=== PATIENT | female | born 2000 | race Caucasian/White ===

== ENCOUNTER 2020-07-29 12:11 | Emergency (ER) | payer OTHER, SELFPAY ==
[~2020-07-29] VITALS: Ht 152.4 cm; Wt 104.5 kg
[2020-07-29] MEDS ORDERED: SERT-141 PO (12:25)
[2020-07-29] MEDS ORDERED: SPRI28TA PO (12:26)
[2020-07-29] MEDS ORDERED: HYDR-3363 PO (12:26)
[2020-07-29] MEDS ORDERED: METOCLOPRAMIDE INJ 10MG/2ML VIAL (J2765 PER 1) IV ONE (12:50)
[2020-07-29 13:23] LABS: BASO % 0.2 % (0.0-1.0); EOS # 0.1 10^3/uL (0.0-0.5); EOS % 0.7 % (0.0-3.0); HEMATOCRIT 44.3 % (36.0-47.0); HEMOGLOBIN 14.1 g/dl (12.0-15.5); LYMPH # 1.5 10^3/uL (1.5-5.0); LYMPH % 13.4 % (24.0-44.0); MEAN CORPUSCULAR HEMOGLOBIN 25.8 pg (27.0-33.0); MEAN CORPUSCULAR HGB CONC 31.8 g/dl (32.0-36.5); MONO # 0.6 10^3/uL (0.0-0.8); MONO % 4.9 % (2.0-8.0); NEUTROPHILS # 9.1 10^3/uL (1.5-8.5); NEUTROPHILS % 80.4 % (36.0-66.0); PLATELET COUNT, AUTOMATED 372 10^3/uL (150-450); RED BLOOD COUNT 5.47 10^6/uL (4.00-5.40); WHITE BLOOD COUNT 11.3 10^3/uL (4.0-10.0)
[2020-07-29 13:54] LABS: HCG, SERUM QUALITATIVE NEGATIVE (NEGATIVE)
[2020-07-29] MEDS ORDERED: ISOVUE-370 76% 100ML VIAL As Ordered ONE (13:57)
--- NOTE | 2020-07-29 14:25 | REP ---
INDICATION: CHEST PAIN. COMPARISON: No comparison study. TECHNIQUE: Portable upright AP chest radiograph. FINDINGS: The lungs are well inflated and free of infiltrate. Pleural angles are sharp. Heart size is normal. Pulmonary vasculature is not increased. Monitoring electrodes are present. IMPRESSION: No active disease. <Electronically signed by Loyd Gomez > 07/29/20 [id number]
[2020-07-29 14:47] LABS: ALBUMIN 3.4 GM/DL (3.2-5.2); ALT/SGPT 173 U/L (12-78); BILIRUBIN,DIRECT 0.6 MG/DL (0.0-0.2); BILIRUBIN,TOTAL 0.8 MG/DL (0.2-1.0); BLOOD UREA NITROGEN 15 MG/DL (7-18); CALCIUM LEVEL 9.3 MG/DL (8.5-10.1); CARBON DIOXIDE LEVEL 24 MEQ/L (21-32); CHLORIDE LEVEL 108 MEQ/L (98-107); CK-MB VALUE MASS < 1.0 NG/ML (<3.6); CPK CREATINE PHOSPHOKINASE 82 U/L (26-192); CREATININE FOR GFR 0.85 MG/DL (0.55-1.30); GLUCOSE, FASTING 112 MG/DL (70-100); LIPASE 40160 U/L (73-393); MB/CK RELATIVE INDEX 1.22 (< OR =4); SODIUM LEVEL 137 MEQ/L (136-145); TOTAL PROTEIN 8.1 GM/DL (6.4-8.2); TROPONIN I < 0.02 NG/ML (< 0.10)
[2020-07-29] MEDS ORDERED: PROMETHAZINE INJ 25 MG/ML VIAL (J2550) IV ONE (14:50)
[2020-07-29] MEDS ORDERED: MORPHINE 2 MG/ML 1ML VIAL (J2270) IV PRN (15:15)
--- NOTE | 2020-07-29 15:38 | REP ---
INDICATION: CP. COMPARISON: No comparison study.. TECHNIQUE: Contrast dose: 100 ML of Isovue [address] technique: Helical scanning is acquired and overlapping 1.5 mm and contiguous 3 mm axial images are reformatted. In addition, maximum intensity projection and multiplanar re-formation images are generated in sagittal and coronal imaging projections. FINDINGS: There is good opacification in the pulmonary arterial tree. There is no evidence of vessel cut off or filling defect to suggest pulmonary embolus. Homogeneous opacity is seen in the thoracic aorta. There is no evidence of aneurysm or dissection. Lung window settings demonstrate clear well inflated lungs. No pleural or pericardial effusion is seen. No infiltrate, mass, or significant pulmonary nodule is appreciated. There are a few granulomatous lymph node calcifications is visible in the left hilus and subcarinal region. In the upper abdomen, normal adrenal glands are seen. There is fatty infiltration of the liver and there is peripancreatic edema suggesting pancreatitis. Visualized upper abdominal structures are otherwise unremarkable. No bony destructive lesion is seen. IMPRESSION: No CT evidence of pulmonary embolus. Evidence of pancreatitis and fatty infiltration of the liver. Otherwise no active disease. <Electronically signed by Loyd Gomez > 07/29/20 [id number]
--- NOTE | 2020-07-29 15:40 | REP ---
INDICATION: abd cm. COMPARISON: None. TECHNIQUE: Helical scanning was acquired and 4 mm axial images are re-formatted. Coronal and sagittal MPR images were generated and reviewed. The contrast enhancement dose is 100 mL of intravenous Isovue 370. FINDINGS: Preliminary digital senior compensation analyst radiograph demonstrates an unremarkable bowel gas pattern. There is mild fatty infiltration of the liver. The liver is not enlarged. Spleen is unremarkable. Normal adrenal glands are seen. No abnormality is noted in the gallbladder. The pancreas is abnormal in that there is pancreatic and peripancreatic edema suggestive of acute pancreatitis. The pancreatic body and tail are edematous. There is some edema in the region of the gastrocolic ligament. No abscess or intrapancreatic fluid collection is seen. No evidence to suggest pancreatic necrosis. The kidneys enhance symmetrically and are morphologically intact. Small and large intestinal bowel loops are unremarkable in the abdomen and pelvis. No abdominal wall defect is seen. Urinary bladder is intact. No uterine or ovarian abnormality is seen. Bone window settings show no significant bony abnormality. IMPRESSION: Findings consistent with acute pancreatitis. Fatty infiltration of the liver. No abscess, pancreatic necrosis, hemorrhagic change or pseudocyst seen. <Electronically signed by Loyd Gomez > 07/29/20 [id number]
[2020-07-29] MEDS ORDERED: ZOFR4TAB16 PO (15:47)
[2020-07-29] MEDS ORDERED: HYDR-3713 PO (15:47)
[2020-07-29 16:05] VITALS: BP 165/99
--- NOTE | 2020-07-29 17:12 | ECGEPIP ---
[facility] - ED Test Date: 2020-07-29 Pat Name: ISRAEL GRAY Department: Room: - Gender: Female Outpatient Psychiatrist: : 2000 Requested By: Shona Hanna Order Number: [id number] Reading MD: Eric Gillis Measurements Intervals Ridge Rate: 81 P: 37 [place]: 132 QRS: 2 QRSD: 80 T: 30 QT: 382 QTc: 443 Interpretive Statements Normal sinus rhythm Minimal voltage criteria for LVH, may be normal variant ( R in aVL ) Delayed anterior R wave progression Comparison tracing not on file Electronically Signed on 07-29-2020 17:12:24 EST by Eric Gillis
== END 2020-07-29 16:16 | disposition home or self-care (01) ==
LOC: M ED 12:11
DX: K85.90 Acute pancreatitis without necrosis or infection, unspecified (principal); Z79.899 Other long term (current) drug therapy; Z79.3 Long term (current) use of hormonal contraceptives
CPT/HCPCS: 71045; 71275; 74177; 80048; 80076; 82550; 82553; 83690; 84484; 84703; 85025; 85379; 93005; 93041; 94760; 96374; 99285; J2765; Q9967